=== PATIENT | female | born 1945 | race Caucasian/White ===

== ENCOUNTER → 2016-10-11 | Outpatient (REF) | payer MEDICARE ==
[~2016-10-11] MED LIST: /CELE20CA PO; /WARF25TA PO; ACET50TA PO; ASPI81TA90; ATENPOW PO; CALC600T7 PO; CORE25TA PO; CYANOCOBALAMIN PO; FERR325T3 PO; LORATIDINE PO; LOSARTAN PO; LYRI75CA PO; MELOPOW; OMEP40CA2 PO; PERC7.5T12 PO; SENN8.6T76 PO; TRAMPOW3 PO; VITAMIN C PO; VITAMIN D 3 PO
[2016-10-11 11:09] LABS: MEAN CORPUSCULAR HEMOGLOBIN 30.6 pg (27.0-33.0); MEAN CORPUSCULAR HGB CONC 32.9 g/dl (32.0-36.5); MEAN CORPUSCULAR VOLUME 92.9 fl (80.0-96.0); WHITE BLOOD COUNT 6.6 K/mm3 (4.0-10.0)
[2016-10-11 11:24] LABS: FOLATE 10.7 NG/ML; VITAMIN B12 LEVEL 1031 PG/ML
[2016-10-11 11:32] LABS: ALBUMIN 3.9 GM/DL (3.2-5.2); ALBUMIN/GLOBULIN RATIO 1.18 (1.00-1.93); ALKALINE PHOSPHATASE 89 U/L (45-117); ALT/SGPT 20 U/L (12-78); ANION GAP 11 MEQ/L (8-16); AST/SGOT 17 U/L (15-37); BILIRUBIN,TOTAL 0.5 MG/DL (0.2-1.0); BLOOD UREA NITROGEN 8 MG/DL (7-18); CALCIUM LEVEL 8.9 MG/DL (8.8-10.2); CARBON DIOXIDE LEVEL 28 MEQ/L (21-32); CHLORIDE LEVEL 99 MEQ/L (98-107); CHOLESTEROL LEVEL 126 MG/DL (<200); CREATININE FOR GFR 0.88 MG/DL (0.55-1.02); FREE T4 1.16 NG/DL (0.76-1.46); GLOMERULAR FILTRATION RATE > 60.0 (>39); GLUCOSE, FASTING 84 MG/DL (83-110); POTASSIUM SERUM 4.2 MEQ/L (3.5-5.1); SODIUM LEVEL 138 MEQ/L (136-145); TOTAL PROTEIN 7.2 GM/DL (6.4-8.2); TRIGLYCERIDES LEVEL 119 MG/DL (<150)
== END ==
LOC: M SFHCPLAZ 08:09
PROVIDERS: ATTEND Nurse Practitioner Family
DX: D64.9 Anemia, unspecified (principal); I10 Essential (primary) hypertension; E04.2 Nontoxic multinodular goiter; E78.2 Mixed hyperlipidemia; E55.9 Vitamin D deficiency, unspecified

== ENCOUNTER → 2016-11-01 | Outpatient (CLI) | payer MEDICARE ==
--- NOTE | 2016-11-01 09:36 | REP ---
TWO VIEWS OF THE CHEST: This study is compared to that on 07/26/2013. The cardiomediastinal structures are normal except for some soft tissue prominence in the retrocardiac area just above the level of the diaphragm. The lungs and bony thorax are unremarkable. The diaphragms are within normal limits. The osseous structures are essentially unremarkable for the age of the patient. IMPRESSION: The finding in the retrocardiac area may represent hiatus hernia. This is not readily identified on lateral plane. Unreviewed
== END ==
LOC: M RAD 08:40
PROVIDERS: ATTEND Nurse Practitioner Family
DX: J44.9 Chronic obstructive pulmonary disease, unspecified (principal)

== ENCOUNTER → 2016-11-03 | Outpatient (CLI) | payer MEDICARE ==
--- NOTE | 2016-11-03 15:02 | REP ---
Clinical: Follow up multinodular goiter. Comparison: 07/27/2013. Technique: Real time mares scale and color evaluation using linear high frequency transducer. Findings: The thyroid gland is diffusely heterogeneous. The right lobe measures 2.7 x 1.2 x 0.9 cm and includes 9 x 5 x 6 mm upper pole solid nodule similar to prior examination. The isthmus measures 4 mm in width. The left lobe measures 3.3 x 1.8 x 1.6 cm and includes 8-0.5 x 1.2 x 1.5 cm centrally located solid nodule similar to prior examination. Impression: Nodular thyroid gland similar to prior examination.
--- NOTE | 2016-11-07 09:36 | DEXA ---
AP SPINE L1 - L4 1.341 1.2 2.2 LT FEMUR TOTAL Hip replacement. RT FEMUR TOTAL Hip replacement. TOTAL BODY TOTAL LEFT FOREARM 0.710 -2.0 -0.1 DUAL FEMUR FRAX* ASSESSMENT Risk factors: 10 year probability of fracture Major osteoporotic fracture % Hip fracture % COMMENTS: Normal bone densitometry of the spine. There is degenerative change in the spine which may artificially elevate the BMD. Left forearm osteoporosis based on radius total T score -2.7. FOLLOW-UP: Recommendation for the next bone density exam: 2 years. CHINAD
== END ==
LOC: M WHC 12:50
PROVIDERS: ATTEND Nurse Practitioner Family
DX: E04.2 Nontoxic multinodular goiter (principal); Z78.0 Asymptomatic menopausal state; Z12.31 Encounter for screening mammogram for malignant neoplasm of breast
CPT/HCPCS: 76536; 77080; G0202

== ENCOUNTER → 2016-12-19 | Outpatient (CLI) | payer MEDICARE ==
--- NOTE | 2016-12-19 08:48 | PFTRPT ---
PULMONARY FUNCTION REPORT ORDERING PROVIDER: Alison Frazier NP DATE OF SERVICE: 12/19/16 SPIROMETRY: Pre and post bronchodilator study of excellent technical quality. The forced vital capacity is reduced. The FEV1 is in proportion. The obstructive index is, therefore, normal. FLOW VOLUME LOOP: The expiratory limb of the flow volume loop does suggest some flow rate limitation. Some difficulty with effort is identified. Mild bronchodilator response is noted. LUNG VOLUMES: The total lung capacity is noted. The residual volume suggests air trapping. DIFFUSION CAPACITY: The diffusion capacity, although reduced, is appropriate for alveolar volume. HEMOGLOBIN:No hemoglobin is available for correction. AIRWAY MECHANICS: Airways resistance is mildly elevated with a concomitant decrease in airway conductance. IMPRESSION: Underlying air trapping with a bronchodilator response noted. Minimal reduction in the absolute diffusion capacity. Please correlate clinically. MTDD
== END ==
LOC: M CARPUL 07:53
PROVIDERS: ATTEND Nurse Practitioner Family
DX: J44.9 Chronic obstructive pulmonary disease, unspecified (principal)

== ENCOUNTER → 2017-02-03 | Outpatient (REF) | payer MEDICARE ==
[2017-02-03 16:41] LABS: ALBUMIN 3.7 GM/DL (3.2-5.2); ALBUMIN/GLOBULIN RATIO 1.16 (1.00-1.93); ALKALINE PHOSPHATASE 98 U/L (45-117); ALT/SGPT 26 U/L (12-78); ANION GAP 8 MEQ/L (8-16); AST/SGOT 18 U/L (15-37); BILIRUBIN,TOTAL 0.6 MG/DL (0.2-1.0); BLOOD UREA NITROGEN 7 MG/DL (7-18); CALCIUM LEVEL 9.5 MG/DL (8.8-10.2); CARBON DIOXIDE LEVEL 27 MEQ/L (21-32); CHLORIDE LEVEL 104 MEQ/L (98-107); CREATININE FOR GFR 0.95 MG/DL (0.55-1.02); GLOMERULAR FILTRATION RATE > 60.0 (>39); GLUCOSE, FASTING 99 MG/DL (83-110); MAGNESIUM LEVEL 1.9 MG/DL (1.8-2.4); POTASSIUM SERUM 4.5 MEQ/L (3.5-5.1); SODIUM LEVEL 139 MEQ/L (136-145); TOTAL PROTEIN 6.9 GM/DL (6.4-8.2)
== END ==
LOC: M SFHCPLAZ 12:45
PROVIDERS: ATTEND Nurse Practitioner Family
DX: I10 Essential (primary) hypertension (principal); E55.9 Vitamin D deficiency, unspecified